=== PATIENT | female | born 1975 | race Caucasian/White ===

== ENCOUNTER 2018-05-06 12:42 | Emergency (ER) | payer MEDICAID ==
[~2018-05-06] VITALS: Ht 167.6 cm; Wt 68.0 kg
[2018-05-06 12:45] VITALS: BP_SYST 113
--- NOTE | 2018-05-06 12:45 | NUR ---
Placed in room 4. Accompanied by CHERELLE.
--- NOTE | 2018-05-06 12:47 | NUR ---
Pt presents to ER brought in handcuffed accompanied by CHERELLE for OK to book. Pt c/o abdominal pain 8/10, general body aches, diarrhea since this morning at 0600. Pt AOX4, speaking full sentences, no signs of acute distress, ambulatory.
--- NOTE | 2018-05-06 12:50 | NUR ---
ER at bedside examining patient.
[2018-05-06 12:55] VITALS: BP_SYST 113
--- NOTE | 2018-05-06 12:55 | NUR ---
Patient given written and verbal discharge instructions and verbalizes understanding. ER MD discussed with patient the results and treatment provided. Patient in stable condition. ID arm band removed. No Rx given. Patient educated on pain management and to follow up with PMD. Pain Scale 8/[address] Fish has medically cleared pt and unwilling to medicate pt at this time. Opportunity for questions provided and answered. Medication side effect fact sheet provided.
== END 2018-05-06 12:55 ==
LOC: SED 12:42
DX: Z02.89 Encounter for other administrative examinations (principal); F11.10 Opioid abuse, uncomplicated
CPT/HCPCS: 99283